=== PATIENT | male | born 1985 | race Caucasian/White ===

== ENCOUNTER 2017-03-15 13:02 | Emergency (ER) | payer MEDICARE, MEDICAID ==
[~2017-03-15] VITALS: Ht 175.3 cm; Wt 68.0 kg
--- NOTE | 2017-03-15 13:41 | ED GI ---
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 Timing/Duration: 2-3 Days Severity/Quality: Moderate Location: Generalized Abdomen Radiation: No Radiation Associated Symptoms: Fever/Chills, Nausea/Vomiting Allergies and Home Medications Allergies Coded Allergies: No Known Drug Allergies (Unverified , 03/15/17) Home Medications No Active Prescriptions or Reported Meds Review of Systems Constitutional: see HPI EENTM: No Symptoms Reported Respiratory: No Symptoms Reported Cardiovascular: No Symptoms Reported Gastrointestinal: See HPI, Abdominal Pain, Diarrhea, Nausea, Vomiting Genitourinary: No Symptoms Reported Musculoskeletal: no symptoms reported Skin: no symptoms reported Psychiatric/Neurological: No Symptoms Reported Endocrine: No Symptoms Reported Hematologic/Lymphatic: No Symptoms Reported Past [id number] Hx Patient Social History Recent Foreign Travel: No Contact w/Someone Who Travel: No Physical Exam Vital Signs VS - Last 72 Hours, by Label 03/15/17 13:39 Temp 98.3 Pulse 64 Resp 18 B/P (MAP) 127/80 Pulse Ox 95 O2 Delivery Room Air Capillary Refill : General Appearance: WD/WN, no apparent distress HEENT: PERRL/EOMI, normal ENT inspection Neck: non-tender, full range of motion Respiratory: no respiratory distress, no accessory muscle use Cardiovascular: regular rate, rhythm, no murmur Gastrointestinal: normal bowel sounds, non tender, soft Extremities: normal range of motion, non-tender Neurologic/Psychiatric: alert, normal mood/affect, oriented x 3 Skin: normal color, warm/dry Progress/Results/Core Measures Results/Orders Lab Results Laboratory Tests Test 03/15/17 14:06 Range/Units White Blood Count 14.7 H 4.3-11.0 10^3/uL Red Blood Count 5.92 H 4.35-5.85 10^6/uL Hemoglobin 18.2 H 13.3-17.7 G/DL Hematocrit 51 40-54 % Mean Corpuscular Volume 86 80-99 FL Mean Corpuscular Hemoglobin 31 25-34 PG Mean Corpuscular Hemoglobin Concent 36 32-36 G/DL Red Cell Distribution Width 12.8 10.0-14.5 % Platelet Count 164 130-400 10^3/uL Mean Platelet Volume 10.6 H 7.4-10.4 FL Neutrophils (%) (Auto) 89 H 42-75 % Lymphocytes (%) (Auto) 6 L 12-44 % Monocytes (%) (Auto) 5 0-12 % Eosinophils (%) (Auto) 0 0-10 % Basophils (%) (Auto) 0 0-10 % Neutrophils # (Auto) 13.1 H 1.8-7.8 X 10^3 Lymphocytes # (Auto) 0.9 L 1.0-4.0 X 10^3 Monocytes # (Auto) 0.7 0.0-1.0 X 10^3 Eosinophils # (Auto) 0.0 0.0-0.3 10^3/uL Basophils # (Auto) 0.0 0.0-0.1 10^3/uL Neutrophils % (Manual) 87 % Lymphocytes % (Manual) 10 % Monocytes % (Manual) 3 % Eosinophils % (Manual) 0 % Basophils % (Manual) 0 % Band Neutrophils 0 % Blood Morphology Comment NORMAL Sodium Level 135 135-145 MMOL/L Potassium Level 3.4 L 3.6-5.0 MMOL/L Chloride Level 100 98-107 MMOL/L Carbon Dioxide Level 24 21-32 MMOL/L Anion Gap 11 5-14 MMOL/L Blood Urea Nitrogen 16 7-18 MG/DL Creatinine 0.89 0.60-1.30 MG/DL Estimat Glomerular Filtration Rate > 60 BUN/Creatinine Ratio 18 Glucose Level 100 70-105 MG/DL Calcium Level 9.6 8.5-10.1 MG/DL Total Bilirubin 0.4 0.1-1.0 MG/DL Aspartate Amino Transf (AST/SGOT) 36 H 5-34 U/L Alanine Aminotransferase (ALT/SGPT) 24 0-55 U/L Alkaline Phosphatase 67 40-136 U/L Total Protein 7.8 6.4-8.2 G/DL Albumin 4.5 3.2-4.5 G/DL Lipase 24 8-78 U/L My Orders Orders - DEBRA SHETH [employer]ED [employer] PRESS OPERATOR Cbc With Automated Diff (03/15/17 13:38) Comprehensive Metabolic Panel (03/15/17 13:38) Lipase (03/15/17 13:38) Ua Culture If Indicated (03/15/17 13:38) Saline Lock/Iv-Start (03/15/17 13:38) Ct Abdomen/Pelvis W (03/15/17 13:38) Ondansetron Injection (Zofran Injectio (03/15/17 13:45) Lactated Ringers (Lr 1000 Ml Iv Solution (03/15/17 13:45) Iohexol Injection (Omnipaque 350 Mg/Ml 1 (03/15/17 13:45) Sodium Chloride Flush (Catheter Flush Sy (03/15/17 13:45) Manual Differential (03/15/17 14:06) Morphine Injection (Morphine Injection (03/15/17 15:15) Ns Iv 1000 Ml (Sodium Chloride 0.9%) (03/15/17 15:15) Medications Given in ED Current Medications Medications Dose Ordered Sig/Iman Route Start Time Stop Time Status Last Admin Dose Admin Iohexol 100 ml ONCE ONCE IV 03/15/17 13:45 03/15/17 13:46 DC 03/15/17 14:29 100 ML Ondansetron HCl 8 mg ONCE ONCE IVP 03/15/17 13:45 03/15/17 13:46 DC 03/15/17 14:05 8 MG Sodium Chloride 10 ml NEEDED PRN IV 03/15/17 13:45 03/15/17 14:29 10 ML Vital Signs/I&O Vital Sign - Last 12Hours 03/15/17 13:39 Temp 98.3 Pulse 64 Resp 18 B/P (MAP) 127/80 Pulse Ox 95 O2 Delivery Room Air Diagnostic Imaging Diagonstic Imaging: Xray Comments NAME: PONCE ESQUIVEL [facility] REC#: [id number] PT STATUS: REG ER : 1985 PHYSICIAN: DEBRA SHETH APRN ADMIT DATE: 03/15/17/ER Draft Date of Exam:03/15/17 CT ABDOMEN/PELVIS W PROCEDURE: CT abdomen and pelvis with contrast. TECHNIQUE: Multiple contiguous axial images were obtained through the abdomen and pelvis after administration of intravenous contrast. INDICATION: Abdominal pain, loss of appetite, and fever for two days. COMPARISON: None. DISCUSSION: The visualized lung bases are well aerated. Normal heart size. No pleural or pericardial fluid. The liver, gallbladder, stomach, pancreas, spleen, adrenal glands, kidneys, prostate, and urinary bladder are unremarkable. Liquid stool is noted within the colon, possible diarrhea. No obstruction or pneumatosis. Mildly thickwalled small bowel loops are noted diffusely, possible enteritis. No ascites or pathologically enlarged lymph nodes identified. The appendix is normal. The aorta is normal in caliber throughout its course. No osseous abnormality identified. IMPRESSION: 1. Nonobstructive thickwalled small bowel loops, possible enteritis. 2. The appendix is normal. Dictated on workstation # [id number] Dict: 03/15/17 1444 Trans: 03/15/17 1450 [facility] [id number] Interpreted by: JOSE ALFREDO CAR[place] MD Electronically signed by: Departure Impression Impression: Primary Impression: Nausea vomiting and diarrhea Disposition: HOME, SELF-CARE Condition: Stable Departure-Patient Inst. Decision time for Depature: 15:24 Ref[place] [facility] [place] Primary Care Physician Patient Instructions: [id number] Add. Discharge Instructions: 1. As mentioned her symptoms could be due to a virus or bacteria 2. Return to ER for any fevers, blood in her stools or worsening pain or diarrhea 3. Take the nausea medication as needed and the antidiarrheal as indicated. All discharge instructions reviewed with patient and/or family. Voiced understanding. Scripts Ondansetron (Zofran Odt) 4 Mg Tab.rapdis 4 MG PO Q4H Y for NAUSEA/VOMITING-1ST LINE for 10 Days, TAB Prov: DEBRA SHETH [employer]ED [employer] PRESS OPERATOR 03/15/17 Loperamide HCl (Imodium A-D) 2 Mg Tablet 2 MG PO UD Y for DIARRHEA, #14 TAB Prov: DEBRA SHETH [employer]ED [employer] PRESS OPERATOR 03/15/17 DEBRA SHETH APRN March 15, 2017 13:41
[2017-03-15] MEDS ORDERED: LACTATED RINGERS 1,000 ML IV SCH (13:45)
[2017-03-15] MEDS ORDERED: IOHEXOL 350 MG/ML 100 ML (OMNIPAQUE 350) VIAL IV ONE (13:45)
[2017-03-15] MEDS ORDERED: CATHETER FLUSH 10 ML SYR IV PRN (13:45)
[2017-03-15] MEDS ORDERED: ONDANSETRON 4 MG/2 ML (SDV) Z0FRAN IVP ONE (13:45)
[2017-03-15 14:20] LABS: BASOPHILS % (AUTO) 0 % (0-10); EOSINOPHILS % (AUTO) 0 % (0-10); LYMPHOCYTES # (AUTO) 0.9 X 10^3 (1.0-4.0); LYMPHOCYTES % (AUTO) 6 % (12-44); MEAN CORPUSCULAR HEMOGLOBIN 31 PG (25-34); MEAN CORPUSCULAR HGB CONC 36 G/DL (32-36); MEAN CORPUSCULAR VOLUME 86 FL (80-99); MEAN PLATELET VOLUME 10.6 FL (7.4-10.4); MONOCYTES # (AUTO) 0.7 X 10^3 (0.0-1.0); MONOCYTES % (AUTO) 5 % (0-12); NEUTROPHILS # (AUTO) 13.1 X 10^3 (1.8-7.8); NEUTROPHILS % (AUTO) 89 % (42-75); PLATELET COUNT 164 10^3/uL (130-400); RED BLOOD COUNT 5.92 10^6/uL (4.35-5.85); RED CELL DISTRIBUTION WIDTH 12.8 % (10.0-14.5); WHITE BLOOD COUNT 14.7 10^3/uL (4.3-11.0)
[2017-03-15 14:45] LABS: ALANINE AMINOTRANSFERASE 24 U/L (0-55); ALBUMIN 4.5 G/DL (3.2-4.5); ANION GAP 11 MMOL/L (5-14); ASPARTATE AMINO TRANSFERASE 36 U/L (5-34); BILIRUBIN,TOTAL 0.4 MG/DL (0.1-1.0); BLOOD UREA NITROGEN 16 MG/DL (7-18); BUN/CREATININE RATIO 18; CALCIUM 9.6 MG/DL (8.5-10.1); CARBON DIOXIDE 24 MMOL/L (21-32); CHLORIDE 100 MMOL/L (98-107); CREATININE SERUM 0.89 MG/DL (0.60-1.30); GFR ESTIMATED > 60; GLUCOSE 100 MG/DL (70-105); LIPASE 24 U/L (8-78); POTASSIUM 3.4 MMOL/L (3.6-5.0); SODIUM 135 MMOL/L (135-145); TOTAL PROTEIN 7.8 G/DL (6.4-8.2)
[2017-03-15 14:49] LABS: BAND NEUTROPHILS 0 %; BASOPHILS % (MANUAL) 0 %; EOSINOPHILS % (MANUAL) 0 %; LYMPHOCYTES % (MANUAL) 10 %; NEUTROPHILS % (MANUAL) 87 %
--- NOTE | 2017-03-15 14:50 | Diagnostic Imaging Report ---
PROCEDURE: CT abdomen and pelvis with contrast. TECHNIQUE: Multiple contiguous axial images were obtained through the abdomen and pelvis after administration of intravenous contrast. INDICATION: Abdominal pain, loss of appetite, and fever for two days. COMPARISON: None. DISCUSSION: The visualized lung bases are well aerated. Normal heart size. No pleural or pericardial fluid. The liver, gallbladder, stomach, pancreas, spleen, adrenal glands, kidneys, prostate, and urinary bladder are unremarkable. Liquid stool is noted within the colon, possible diarrhea. No obstruction or pneumatosis. Mildly thickwalled small bowel loops are noted diffusely, possible enteritis. No ascites or pathologically enlarged lymph nodes identified. The appendix is normal. The aorta is normal in caliber throughout its course. No osseous abnormality identified. IMPRESSION: 1. Nonobstructive thickwalled small bowel loops, possible enteritis. 2. The appendix is normal. Dictated by: Dictated on workstation # [id number]
[2017-03-15] MEDS ORDERED: morphine INJ 10 MG/ML 1ML (SYR OR VIAL) IVP ONE (15:15)
[2017-03-15] MEDS ORDERED: NS IV 1000 ML 1,000 ML IV SCH (15:15)
[2017-03-15] MEDS ORDERED: ONDA4TAB8 PO (15:26)
[2017-03-15] MEDS ORDERED: LOPE-134 PO (15:26)
[2017-03-15 16:01] VITALS: BP 112/60
== END 2017-03-15 16:01 | disposition home or self-care (01) ==
LOC: ER 13:15
DX: R19.7 Diarrhea, unspecified (principal); R11.2 Nausea with vomiting, unspecified
CPT/HCPCS: 36415; 74177; 80053; 83690; 85007; 85027; 96361; 96374; 96375